=== PATIENT | female | born 1995 | race Caucasian/White ===

== ENCOUNTER → 2021-02-20 15:30 | Outpatient (CLI) | payer MEDICAID, SELFPAY ==
[2020-06-17 17:18] VITALS: BMI 28.4
[2021-02-20 16:11] LABS: Absolute Lymphocyte Count 2.04 X10^3/uL (0.83-4.51); Absolute Neutrophil Count 4.4 X10^3/uL (2.0-7.7); Basophil# 0.03 X10^3/uL; Basophil% 0.4 % (0-1); Eosinophil# 0.16 X10^3/uL; Eosinophils% 2.2 % (0-5); Lymphocyte # 2.04 X10^3/ul (0.83-4.51); Lymphocyte % 28.6 % (19-41); Mean Corp Hgb Conc 31.7 g/dL (32-36); Mean Corpuscular Hgb 27.7 pg (27.0-32.0); Mean Corpuscular Volume 87.2 fL (81-99); Mean Platelet Vol. 9.8 fl (6.2-12.0); Monocyte# 0.47 X10^3/uL; Monocyte% 6.6 % (0-10); NRBC Flagged by Analyzer 0 % (0-5); Neutrophil # 4.42 X10^3/uL (2.7-7.7); Neutrophil % 61.9 % (47-70); Platelet Count 422 K/mm3 (150-450); RBC Distribution Width CV 13.2 % (11.6-14.6); RBC Distribution Width SD 42.7 fl (35.1-43.9); White Blood Count 7.1 K/mm3 (4.4-11.0)
[2021-02-21 10:46] LABS: HIV - WCH Non-Reactive (Nonreactive); Hepatitis B Surface Antigen Non-Reactive (Nonreactive); Hepatitis C Antibody Non-Reactive (Nonreactive); Rubella IgG Reactive (Nonreactive); Syphilis Antibodies Non-reactive
[2021-02-24 06:06] LABS: Chlamydia By Nucleic Acid AMP Positive (Negative)
[2021-02-24 09:29] LABS: Gonococcus By Nucleic Acid AMP Negative (Negative)
[2021-02-26 12:57] LABS: HPV Reflexed? NOT INDICATED
== END ==
PROVIDERS: PCP Pediatrics; Visit Provider Obstetrics & Gynecology
DX: Z34.91 Encounter for supervision of normal pregnancy, unspecified, first trimester (principal); Z3A.00 Weeks of gestation of pregnancy not specified
CPT/HCPCS: 36415; 85025; 86703; 86762; 86780; 86803; 87086; 87088; 87340; 87491; 87591; 88175; G0145

== ENCOUNTER → 2021-04-04 16:15 | Outpatient (CLI) | payer MEDICAID, SELFPAY ==
[2020-06-17 17:18] VITALS: BMI 28.4
[2021-04-08 03:06] LABS: Chlamydia By Nucleic Acid AMP Negative (Negative)
[2021-04-08 15:57] LABS: Gonococcus By Nucleic Acid AMP Negative (Negative)
== END ==
PROVIDERS: PCP Pediatrics; Visit Provider Obstetrics & Gynecology
DX: Z11.3 Encounter for screening for infections with a predominantly sexual mode of transmission (principal)
CPT/HCPCS: 87491; 87591

== ENCOUNTER → 2021-05-01 16:03 | Outpatient (CLI) | payer MEDICAID, SELFPAY ==
[2020-06-17 17:18] VITALS: BMI 28.4
== END ==
PROVIDERS: PCP Pediatrics; Visit Provider Obstetrics & Gynecology
DX: Z34.82 Encounter for supervision of other normal pregnancy, second trimester (principal)
CPT/HCPCS: 36415; 81220; 82105; 82677; 84702

== ENCOUNTER → 2021-06-30 14:03 | Outpatient (CLI) | payer MEDICAID, SELFPAY ==
[2021-06-30 16:26] LABS: Hematocrit 36.4 % (37-47); Hemoglobin 12.2 g/dL (12.0-15.0); Mean Corp Hgb Conc 33.5 g/dL (32-36); Mean Corpuscular Hgb 28.3 pg (27.0-32.0); Mean Corpuscular Volume 84.5 fL (81-99); Mean Platelet Vol. 11.3 fl (6.2-12.0); Platelet Count 330 K/mm3 (150-450); RBC Distribution Width CV 13.1 % (11.6-14.6); RBC Distribution Width SD 40.2 fl (35.1-43.9); Red Blood Count 4.31 M/mm3 (4.2-5.4)
[2021-06-30 16:41] LABS: Glucose Challenge Gest 1H 50g 163 mg/dL (70-140)
== END ==
PROVIDERS: PCP Pediatrics; Visit Provider Obstetrics & Gynecology
DX: Z34.82 Encounter for supervision of other normal pregnancy, second trimester (principal)
CPT/HCPCS: 36415; 82950; 85027

== ENCOUNTER → 2021-09-23 | Outpatient (CLI) | payer MEDICAID, SELFPAY | END | disposition home or self-care (01) | LOC: LABSPEC 17:01 | PROVIDERS: PCP Pediatrics; Visit Provider Student in an Organized Health Care Education/Training Program | DX: Z36.85 Encounter for antenatal screening for Streptococcus B (principal) | CPT/HCPCS: 87077; 87081; 87186 ==

== ENCOUNTER → 2021-10-06 | Outpatient (CLI) | payer MEDICAID, SELFPAY | END | disposition home or self-care (01) | LOC: LABSPEC 16:31 | PROVIDERS: PCP Pediatrics; Visit Provider Obstetrics & Gynecology | DX: Z03.818 Encounter for observation for suspected exposure to other biological agents ruled out (principal) | CPT/HCPCS: 87635; U0005; U0003 ==

== ENCOUNTER 2021-10-13 05:00 | Inpatient (IN) | payer MEDICAID, SELFPAY ==
[2021-10-13] VITALS (16 sets, daily range): BP systolic 86–120; BP diastolic 41–67; PULSE 44–103; RESP 10–18; TEMP 36.1–36.9; O2SAT 95–98; BMI 28.1
[2021-10-13] MEDS: Lactated Ringers 1,000 ML 999 ML IV (05:30)
[2021-10-13 06:07] LABS: Absolute Neutrophil Count 6.1 X10^3/uL (2.0-7.7); Basophil# 0.04 X10^3/uL; Basophil% 0.5 % (0-1); Eosinophil# 0.07 X10^3/uL; Eosinophils% 0.8 % (0-5); Hematocrit 31.4 % (37-47); Hemoglobin 10.4 g/dL (12.0-15.0); Lymphocyte % 24.1 % (19-41); Mean Corp Hgb Conc 33.1 g/dL (32-36); Mean Corpuscular Hgb 26.3 pg (27.0-32.0); Mean Corpuscular Volume 79.3 fL (81-99); Mean Platelet Vol. 12.1 fl (6.2-12.0); Monocyte# 0.43 X10^3/uL; Monocyte% 4.9 % (0-10); NRBC Flagged by Analyzer 0 % (0-5); Neutrophil # 6.06 X10^3/uL (2.7-7.7); Neutrophil % 69.4 % (47-70); Platelet Count 308 K/mm3 (150-450); RBC Distribution Width CV 13.5 % (11.6-14.6); RBC Distribution Width SD 38.6 fl (35.1-43.9); Red Blood Count 3.96 M/mm3 (4.2-5.4); White Blood Count 8.7 K/mm3 (4.4-11.0)
[2021-10-13] MEDS: Acetaminophen 500 MG Tablet 1000 MG PO ×3 (06:16→18:35)
--- NOTE | 2021-10-13 06:40 | HP.PCM.OB_ITS ---
History and Physical Date of Admission: 10/13/21 HPI 26-year-old G4, P1 at 39/0 weeks, GEENA 10/20/2020 1 x 7-week ultrasound, admitted for repeat section. Denies headache, vision changes, chest pain, shortness of breath, nausea or vomiting, fevers or chills, diarrhea constipation. Denies regular contractions, leaking of fluid, vaginal bleeding reports movement. complicated by: Prior section, positive chlamydia in February 2021 with negative test of cure, daughter born with hydrocephaly and shunt, hist ory of anxiety and depression. Failed 1 hour glucose test, declined 3-hour test as well as home testing with multiple attempts to evaluate her glucose. [employer] history: 1 11/22/16 39 wks 1 hrs C-Sect 2 11/12/20 4 wks 0 hrs Sab 3 12/23/20 4 wks 0 hrs Sab Medical history: Denies Surgical history: section Allergies: No known drug allergies Social: Denies tobacco, alcohol, drug use Family history: Noncontributory Review of systems: Negative otherwise stated above Physical exam: Vitals: BP 120/63//pulse 67//respiratory 18 //temp 97.4 ?F //oxygen saturation 96% on room air General: No acute distress HEENT: Normocephalic/atraumatic, PERRLA Cardiorespiratory: No increased effort, regular heart rate Abdomen: Soft, nontender, gravid Extremities: Minimal edema Neurologic: Cranial nerves II through XII grossly intact Musculoskeletal: Muscle strength equal throughout all extremities Labs: GBS positive A pos Rubella immune HIV/Hep B/Hep C Neg/neg/neg G/C neg April 2021 COVID neg CBC WBC 8.7/hemoglobin 10.4/hematocrit 31.4/platelets 308 26-year-old G4, P1 at 39/0 weeks, GEENA 10/20/2020 1 x 7-week ultrasound, admitted for repeat section. complicated by: Prior section, positive chlamydia in February 2021 with negative test of cure in April, daughter born with hydrocephaly and shunt, history of anxiety and depression. Failed 1 hour glucose test, declined 3-hour test as well as home testing with multiple attempts to evaluate her glucose. -Admit to labor and delivery -Ancef preop Assessment & Plan Assessment/Plan (1) Depression: QUALIFIERS: Depression Type: major depressive disorder Major depression recurrence: recurrent Active/Remission status: currently active Major depression episode severity: moderate Qualified Code(s): F33.1 - Major depressive disorder, recurrent, moderate (2) Anxiety: (3) Delivery by section:
[2021-10-13] MEDS: Cefazolin 2 GM in 0.9% Normal Saline 100 ML IV (07:15)
[2021-10-13] MEDS: Sodium Citrate/Citric Acid 30 ML UDC PO (07:16)
--- NOTE | 2021-10-13 08:16 | EX.PCM.OBRPT ---
Maternal Data Information GEENA Calculator Estimated Delivery Date Method Current WG Current Estimate 07/14/21 LMP (Certain) 53w 0d Details Operative Information Date of Procedure: 10/13/21 Pre-Operative Diagnosis: Term, history of section Post-Operative Diagnosis: Term, history of section [employer]: Francois Lopez Findings Description of Procedure: Procedure: Repeat low transverse section Via Pfannenstiel incision Surgeon: Angel Lawson MD Anesthesia: Spinal EBL: 600 cc IV fluids: 800 cc Urine output: 50 cc Complications: None Specimen: None Findings: Female infant in vertex position, Apgars 8/9. Normal uterus, tubes, and ovaries. Mild amount of adhesions. Consent: Patient with a history of section for repeat section. Patient understands the risk of the procedure include but are not limited to visceral or vascular injury, prolonged hospitalization, blood loss and need for transfusion, reoperation. Patient stated understanding and wished to proceed. All questions were answered and consent was signed. Procedure: Patient was brought back to the OR where spinal anesthesia was found to be adequate. 2 g of Ancef were given for infection prophylaxis. Patient was prepared and draped in a supine position with leftward tilt. A Pfannenstiel incision was made at the skin with a scalpel. The incision was carried down to the fascia with a scalpel. The fascia was excised and extended laterally. Inferior aspect of the fascia was grasped with a clamp and the underlying rectus and pyramidalis muscle were dissected off sharply with Dove scissors. In a similar fashion the superior aspect of the fascia was grasped and the underlying rectus muscle was dissected off sharply. Rectus muscle was dissected at the midline down to the level of the pubic symphysis. Preperitoneal fatty tissue was noted and peritoneum was entered bluntly. Peritoneum was extended superiorly and inferiorly with good visualization of the bladder. Bladder blade was inserted and vesicouterine peritoneum was identified. Low transverse hysterotomy was made. Hand was placed into the incision and gentle fundal pressure was applied once the bladder blade was removed and the head was brought into the incision. Head and shoulders were delivered with ease. Cord was cut and clamped. Baby was handed off to nursing. Placenta was delivered via cord traction and fundal massage. IV oxytocin was initiated in order to facilitate uterine contractions. Uterus was exteriorized and wiped out with dry laparotomy sponge in order to remove remaining placental membranes. Uterus was closed in a continuous running fashion. Second layer was performed. Good hemostasis was noted. Uterus was placed back into the abdominal cavity and the incision was reinspected, good hemostasis was noted. Muscle was reapproximated with horizontal mattress sutures. Fascia was closed in a continuous running fashion with PDS. Skin was closed in a subcuticular fashion. All counts were correct x2. Patient tolerated the procedure well and was brought to recovery in a stable condition.
[2021-10-13] MEDS: Oxytocin 30 units/NS 500 ml 30 UNITS/500 ML IV.SOLN 167 UNITS IV (08:40)
[2021-10-13] MEDS: Ketorolac 30 MG/ML Syringe IV ×3 (09:25→21:18)
[2021-10-13] MEDS: Lactated Ringers 500 ML 999 ML IV (09:50)
[2021-10-13] MEDS: Lactated Ringers 1,000 ML 100 ML IV (11:30)
--- NOTE | 2021-10-13 14:56 | NURSING ---
1000 Dr. blunt to the room to asses low bp and pulse. Plan of care is to give IV fluid bolus of 500cc
[2021-10-13] MEDS: 0.9% Saline Lock 10 ML Syringe IV (21:18)
[2021-10-13] MEDS: Enoxaparin 40 MG/0.4 ML Syringe SC (21:18)
[2021-10-14 00:40] VITALS: BP 94/48; PULSE 78; RESP 16; TEMP 36.1; O2SAT 96
[2021-10-14] MEDS: Acetaminophen 500 MG Tablet 1000 MG PO ×2 (00:40→06:37)
[2021-10-14 03:50] VITALS: BP 97/48; PULSE 60; RESP 16; TEMP 36.4; O2SAT 97
[2021-10-14] MEDS: Ketorolac 30 MG/ML Syringe IV (03:58)
[2021-10-14] MEDS: 0.9% Saline Lock 10 ML Syringe IV (03:59)
[2021-10-14 04:26] LABS: Hematocrit 26.9 % (37-47); Hemoglobin 8.7 g/dL (12.0-15.0); Mean Corp Hgb Conc 32.3 g/dL (32-36); Mean Corpuscular Hgb 26.4 pg (27.0-32.0); Mean Corpuscular Volume 81.8 fL (81-99); Mean Platelet Vol. 11.9 fl (6.2-12.0); Platelet Count 239 K/mm3 (150-450); RBC Distribution Width CV 13.9 % (11.6-14.6); RBC Distribution Width SD 40.4 fl (35.1-43.9); Red Blood Count 3.29 M/mm3 (4.2-5.4); White Blood Count 8.8 K/mm3 (4.4-11.0)
--- NOTE | 2021-10-14 07:37 | PN.OBGYN_ITS ---
Subjective Subjective Postop day 1. Patient feeling well. Pain controlled. Able to ambulate, eat and drink. Objective Data Objective Data Vital Signs: Vital Signs Temp Pulse Resp BP Pulse Ox 97.5 F L 60 16 97/48 L 97 10/14/21 03:50 10/14/21 03:50 10/14/21 03:50 10/14/21 03:50 10/14/21 03:50 Oxygen Delivery Method Room Air Weight: 74.389 kg Body Mass Index (BMI) 28.1 Intake & Output: Intake and Output for Last 24 Hours 10/12/21 10/13/21 10/14/21 23:59 23:59 23:59 Intake Total 3910 / 3910 Output Total 650 / 650 100 / 100 Balance 3260 / 3260 -100 / -100 Lab / Micro Data Result Diagrams: 10/14/21 04:10 Labs: Laboratory Results - last 24 hr 10/13/21 05:30: Blood Type A POSITIVE, Antibody Screen NEGATIVE 10/14/21 04:10: WBC 8.8, RBC 3.29 L, Hgb 8.7 L, Hct 26.9 L, MCV 81.8, MCH 26.4 L , MCHC 32.3, RDW Std Deviation 40.4, RDW Coeff of Bhakti 13.9, Plt Count 239, MPV 11.9 Physical Exam Const alert, oriented x3 and no apparent distress HEENT normocephalic Head and Scalp: atraumatic Neck full ROM Resp normal respiratory effort Cardio regular rate GI normal to inspection, nondistended, normoactive bowel sounds GI Narrative: Uterus 2 cm below umbilicus, dressing clean and dry. area of dried blood within marking Back/Spine normal ROM Extremity normal to inspection Extremity Narrative: Minimal pedal edema Neuro no focal motor deficits and no sensory deficits noted Psych mental status grossly normal and affect normal Assessment & Plan (1) Delivery by section: PLAN: Postop day 1 status post repeat section. Patient feeling well. Pain controlled. Formula feeding. Acute blood loss anemia secondary to surgery plan for iron supplement at home 3 times weekly. Home today. (2) Anxiety: (3) Depression: QUALIFIERS: Depression Type: major depressive disorder Major depression recurrence: recurrent Active/Remission status: currently active Major depression episode severity: moderate Qualified Code(s): F33.1 - Major depressive disorder, recurrent, moderate
--- NOTE | 2021-10-14 07:45 | PCM.DC ---
Discharge Instructions Diet Discharge Diet: No restrictions Activity Discharge Activity: Return to Normal Activity and May Shower May resume sexual activity in: 4-6 weeks Weight Bearing Status: Weight bearing as tolerated Lifting Restrictions: No greater than 25 pounds Dressing / Incision Call your doctor if your incision/area has: Continuous Slow Oozing, Sudden Increased Bleeding, Increased Pain/ Swelling, Increased Redness and Swelling at the incision site Call your doctor if you observe: Fever of 101 or Higher, Change in Color, Inability to urinate, Using more than 1 pad per hour, Shortness of breath, Dizziness, Swelling in the ankles, Chest pain and Calf discomfort Change Dressing in: 1 week Cleanse incision/area with: Soap & Water Follow Up Care Please Follow Up With: Angel Lawson MD When: 2-week post op and 6-week visit Test Results: Test results from this visit will be discussed in further detail at your follow-up appointment, if applicable. Discharge Plan Admission Admit Date/Time: 10/13/21 05:00 Primary Reason for Your Visit: Repeat section Attending Provider: Angel Lawson Primary Care Provider: Care Physician,Petra Primary Discharge Orders/Prescriptions Prescriptions: New oxycodone 5 mg Tablet 5 mg PO Q6H 4 Days Qty: 16 RF: 0 Continued 1 cap capsule 1 cap PO/SL DAILY RF: 0 Referrals / Follow Up: Care Physician,Petra Primary [Primary Care Provider] - Disposition Disposition (needs filled in before D/C Order can be placed): Home, Self Care
[2021-10-14 08:30] VITALS: BP 102/47; PULSE 61; RESP 16; TEMP 36.6
[2021-10-14] MEDS: Senna/Docusate Sodium 1 Tablet PO (09:12)
[2021-10-14] MEDS: Ibuprofen 600 MG Tablet PO (09:12)
== END 2021-10-14 13:00 | disposition home or self-care (01) | DRG 540 ==
PROVIDERS: Student in an Organized Health Care Education/Training Program; Admitting Provider Obstetrics & Gynecology; Visit Provider Obstetrics & Gynecology
PROC: 10D00Z1 Extraction of Products of Conception, Low, Open Approach (ICD-10-PCS; CPT 59514; principal; 2021-10-13 07:15)
DX: O34.211 Maternal care for low transverse scar from previous cesarean delivery (principal); O99.824 Streptococcus B carrier state complicating childbirth; O99.344 Other mental disorders complicating childbirth; F33.1 Major depressive disorder, recurrent, moderate; Z3A.39 39 weeks gestation of pregnancy; Z37.0 Single live birth
CPT/HCPCS: 85025; 85027; 86850; 86900; 86901; 99218; 99251; J7120; A4216; G0378; G0463; J2405